=== PATIENT | male | born 1965 | race Caucasian/White ===

== ENCOUNTER 2023-06-09 16:07 | Outpatient (CLI) | payer OTHER | END 2023-06-09 23:59 | disposition critical access hospital (66) | LOC: EMS 16:07 | DX: R42 Dizziness and giddiness (principal); R11.0 Nausea | CPT/HCPCS: A0425; A0427 ==

== ENCOUNTER 2023-06-09 16:35 | Emergency (ER) | payer OTHER ==
[2023-06-09 16:48] VITALS: O2SAT 100
[2023-06-09] MEDS ORDERED: SODIUM CHLORIDE 0.9% 1,000 ML IV STA (16:57)
[2023-06-09 17:08] LABS: BASOPHILS % (AUTO) 0.7 %; EOSINOPHILS # (AUTO) 0.2 10^3/uL (0.0-0.7); EOSINOPHILS % (AUTO) 3.4 %; HCT - HEMATOCRIT 38.1 % (42.0-52.0); HGB - HEMOGLOBIN 12.6 g/dL (14.0-18.0); LYMPHOCYTES # (AUTO) 1.3 10^3/uL (1.5-3.5); LYMPHOCYTES % (AUTO) 23.6 %; MEAN CORPUSCULAR HEMOGLOBIN 30.1 pg (27.0-31.0); MEAN CORPUSCULAR HGB CONC 33.1 g/dL (32.0-36.0); MEAN CORPUSCULAR VOLUME 91.1 fL (80.0-94.0); MEAN PLATELET VOLUME 9.9 fL (7.4-11.4); MONOCYTES # (AUTO) 0.6 10^3/uL (0.0-1.0); NEUTROPHILS # (AUTO) 3.4 10^3/uL (1.5-6.6); NEUTROPHILS % (AUTO) 60.9 %; PLT - PLATELET COUNT 222 10^3/uL (130-450); RED BLOOD COUNT 4.18 10^6/uL (4.70-6.10); RED CELL DISTRIBUTION WIDTH 13.5 % (12.0-15.0); WHITE BLOOD COUNT 5.6 x10^3/uL (4.8-10.8)
[2023-06-09 17:23] LABS: ALBUMIN 4.2 g/dL (3.2-5.5); ALBUMIN/GLOBULIN RATIO 1.6 (1.0-2.2); BILIRUBIN,TOTAL 0.3 mg/dL (0.2-1.0); CALCIUM 9.2 mg/dL (8.5-10.3); CREATININE 0.9 mg/dL (0.6-1.3); MAGNESIUM 1.9 mg/dL (1.7-2.3); PHOSPHORUS 2.9 mg/dL (2.5-5.0); POTASSIUM 3.4 mmol/L (3.5-4.5); TOTAL PROTEIN 6.9 g/dL (6.4-8.9)
--- NOTE | 2023-06-09 17:33 | ED Physician Documentation ---
History of Present Illness - Stated complaint Stated Complaint: NEAR SYNCOPE/NAUSEA/WEAKNESS - Chief complaint Chief Complaint: Neuro - History obtained from History obtained from: Patient - History of Present Illness Timing: Today Pain level max: 2 Pain level now: 0 - Additonal information Additional information: 58-year-old male presents to the emergency department stating that he has felt lightheaded and weak today. Had some nausea as well. Had a Juan-en-Y gastric bypass 1 month ago in [place]. He states that since he had mild abdominal cramping earlier. He does not have any abdominal pain or cramping now. He states he has lost approximately 25 pounds in 1 month. He went from approximately 190 pounds to 165 pounds. No fevers. No chills. No cough. No congestion. Worse with standing, better with lying down. No chest pain. No shortness of breath. No headache. No fall. No syncope Review of Systems Constitutional: denies: Fever, Chills Cardiac: denies: Chest pain / pressure Respiratory: denies: Dyspnea, Cough GI: reports: Nausea. denies: Vomiting, Diarrhea, Hematemesis, Bloody / black stool Skin: denies: Rash Musculoskeletal: denies: Neck pain, Back pain Neurologic: denies: Headache PD PAST MEDICAL HISTORY - Past Medical History Past Medical History: Yes Cardiovascular: Hypertension Respiratory: None Neuro: None Endocrine/Autoimmune: None GI: GERD : None HEENT: None Psych: None Musculoskeletal: None Derm: None - Past Surgical History Past Surgical History: Yes General: Gastric surgery, Other - Present Medications Home Medications: Ambulatory Orders Medication Instructions Recorded Confirmed Pantoprazole [Protonix] 40 mg PO DAILY 06/09/23 amLODIPine [Norvasc] 10 mg PO DAILY 06/09/23 - Allergies Allergies/Adverse Reactions: Allergies Allergy/AdvReac Type Severity Reaction Status Date / Time No Known Drug Allergies Allergy Verified 06/09/23 16:45 - Social History Does the pt smoke?: No Smoking Status: Never smoker Does the pt drink ETOH?: No Does the pt have substance abuse?: No - Immunizations Immunizations are current?: Yes - POLST Patient has POLST: No PD ED PE NORMAL - Vitals Vital signs reviewed: Yes - General General: Alert and oriented X 3, No acute distress - HEENT HEENT: PERRL, Other (Dry lips and tongue) - Neck Neck: Supple, no meningeal sign - Cardiac Cardiac: RRR, Strong equal pulses - Respiratory Respiratory: No respiratory distress, Clear bilaterally - Abdomen Abdomen: Soft, Non tender, Non distended, Other (Incisions are well-healed, no signs of infection) - Derm Derm: Warm and dry - Extremities Extremities: No edema, No calf tenderness / cord - Neuro Neuro: Alert and oriented X 3 - Psych Psych: Normal mood, Normal affect Results - Vitals Vitals: Vital Signs - 24 hr 06/09/23 06/09/23 16:43 18:27 Temperature 36.5 C 36.6 C Heart Rate 66 54 L Respiratory 18 16 Rate Blood Pressure 103/70 115/75 O2 Saturation 100 100 Oxygen O2 Source Room air - Labs Labs: Laboratory Tests 06/09/23 06/09/23 17:02 17:02 WBC 5.6 RBC 4.18 L Hgb 12.6 L Hct 38.1 L MCV 91.1 MCH 30.1 MCHC 33.1 RDW 13.5 Plt Count 222 MPV 9.9 Neut # (Auto) 3.4 Lymph # (Auto) 1.3 L [place] # (Auto) 0.6 Eos # (Auto) 0.2 Baso # (Auto) 0.0 Absolute Nucleated RBC 0.00 Nucleated RBC % 0.0 Sodium 139 Potassium 3.4 L Chloride 106 Carbon Dioxide 28 Anion Gap 5.0 L BUN 14 Creatinine 0.9 Estimated GFR (MDRD) 87 L Glucose 83 Calcium 9.2 Phosphorus 2.9 Magnesium 1.9 Total Bilirubin 0.3 AST 17 ALT 16 Alkaline Phosphatase 64 Total Protein 6.9 Albumin 4.2 Globulin 2.7 Albumin/Globulin Ratio 1.6 Lipase 57 PD Medical Decision Making - ED course Complexity details: reviewed results, re-evaluated patient, considered differential, d/w patient ED course: Patient initially was hypotensive, given IV fluids. Lightheadedness, dizziness, nausea and abdominal cramping all resolved. Tolerating p.o. without difficulty. Ambulating without difficulty. Abdomen is soft, nontender no ndistended on serial exam. No significant lab abnormalities. No evidence of internal hernia or incarceration. His blood pressure improved with IV fluids as well. Symptoms appear consistent with dehydration at this time. Patient counseled regarding signs and symptoms for which I believe and urgent re- evaluation would be necessary. Patient with good understanding of and agreement to plan and is comfortable going home at this time This document was made in part using voice recognition software. While efforts are made to proofread this document, sound alike and grammatical errors may occur. Departure - Departure Disposition: 01 Home, Self Care Clinical Impression: Dehydration Condition: Good Instructions: ED Dehydration Follow-Up: your,doctor in 1 week [Other] Comments: Please make sure you are drinking plenty of fluids at home. Please follow-up with your doctor as needed for further care. Return for worsening abdominal pain, vomiting or other new or worrisome symptoms. Forms: PCP List Discharge Date/Time: 06/09/23 18:29
[2023-06-09 18:29] VITALS: BP 115/75
== END 2023-06-09 18:29 | disposition home or self-care (01) ==
LOC: ED 16:35
DX: E86.0 Dehydration (principal); I10 Essential (primary) hypertension; Z79.899 Other long term (current) drug therapy
CPT/HCPCS: 36415; 80053; 83690; 83735; 84100; 85025; 99283; 99284